=== PATIENT | male | born 1985 | race African-American/Black ===

== ENCOUNTER 2017-02-12 08:54 | Emergency (ER) | payer OTHER ==
[~2017-02-12] VITALS: Ht 188 cm; Wt 81.4 kg
[~2017-02-12 08:54] MED LIST: DICLOFENAC PO; FLEXERIL PO
[2017-02-12 09:32] LABS: URINE SOURCE CLEAN CATCH
[2017-02-12 09:38] LABS: URINE APPEARANCE CLEAR; URINE BILIRUBIN NEG (NEG); URINE BLOOD 3+ (NEG); URINE COLOR YELLOW; URINE GLUCOSE NEG (NEG); URINE KETONE NEG (NEG); URINE LEUKOCYTE ESTERASE NEG (NEG); URINE NITRATE NEG (NEG); URINE PROTEIN NEG (NEG); URINE SPECIFIC GRAVITY 1.024 (1.003-1.035)
[2017-02-12 09:40] LABS: URBCS1 AUWI 100-200 /[HPF] (0-2); URINE BACTERIA AUWI NEG (NEGATIVE); URINE SQUAMOUS EPITHELIAL CELL NONE SEEN /[HPF]
[2017-02-12 09:54] LABS: CULTURE INDICATED? NO
== END 2017-02-12 10:22 | disposition home or self-care (01) ==
LOC: CED 08:54
DX: R36.1 Hematospermia (principal); F17.210 Nicotine dependence, cigarettes, uncomplicated; Z98.890 Other specified postprocedural states; Z79.899 Other long term (current) drug therapy
CPT/HCPCS: 81003; 99283